=== PATIENT | male | born 1980 | race Caucasian/White ===

== ENCOUNTER 2024-07-24 12:56 | Emergency (ER) | payer BC, SELFPAY ==
--- NOTE | 2024-07-24 13:05 | EKG_ITS ---
[facility] Test Date: 2024-07-24 Pat Name: SUELLEN EL Department: Room: - Gender: Male Kinesiologist: : 1980 Requested By: Aime Cormier (DIANA) Order Number: [id number] Reading MD: Aime Cormier (HOUSE CARPENTER HELPER) Measurements Intervals [place] Rate: 62 P: 8 VT: 142 QRS: -1 QRSD: 94 T: 14 QT: 380 QTc: 388 Interpretive Statements SINUS RHYTHM MINIMAL VOLTAGE CRITERIA FOR LVH, CONSIDER NORMAL VARIANT [MEETS CRITERIA IN ONE OF: R(aVL), S(V1), R(V5), R(V5/V6)+S(V1)] No previous ECG available for comparison /[id number].pdf
--- NOTE | 2024-07-24 13:14 | XR_ITS ---
Examination: PA lateral chest 2 views TECHNIQUE: Upright PA lateral chest 2 views Exam date and time: July 20, 2024 1348 hours INDICATIONS: Chest pain beginning 2 days ago. FINDINGS: Normal heart size Lungs are clear. The osseous structures are intact IMPRESSION: No active disease
--- NOTE | 2024-07-24 13:15 | PD.EDRME ---
Rapid Medical Screening Exam RME Arrival date/time: 07/24/24 12:56 44-year-old male with no significant medical problems presents to the emergency department today with complaits of episode of hypertension and chest pressure and lightheadedness today Chief Complaint: Chest Pain
[2024-07-24 13:18] VITALS: BP 163/97; PULSE 70; RESP 18; TEMP 36.7; O2SAT 96; BMI 29.9
[2024-07-24 13:38] LABS: Basophils % (Auto) 1 % (0-2.5); Eosinophils # (Auto) 0.1 Thou/mm3 (0.0-0.5); Eosinophils % (Auto) 2 % (0-10); Hematocrit 45.8 % (41.0-53.0); Hemoglobin 16.7 g/dL (13.5-16.0); Immature Granulocytes % (Auto) 0 % (0-0); Immature Granulocytes Auto 0.01 Thou/mm3 (0.00-0.00); Lymphocytes # (Auto) 1.7 Thou/mm3 (1.0-4.8); Lymphocytes % (Auto) 29 % (10-50); Mean Corpuscular HGB Conc 36.5 g/dl (31.0-37.0); Mean Corpuscular Hemoglobin 32.9 pg (25.0-35.0); Mean Corpuscular Volume 90 fL (80-100); Monocytes # (Auto) 0.6 Thou/mm3 (0.0-0.8); Monocytes % (Auto) 10 % (0-12); Neutrophils # (Auto) 3.4 Thou/mm3 (1.8-7.7); Neutrophils % (Auto) 59 % (37-80); Nucleated Red Blood Cell % 0 /100 WBC (0); Platelet Count 251 Thou/mm3 (140-440); RDW Standard Deviation 41.4 fL (35.1-43.9); Red Blood Count 5.07 Miln/mm3 (4.50-5.90); White Blood Count 5.8 Thou/mm3 (3.8-10.6)
[2024-07-24 13:53] LABS: Partial Thromboplastin Time 29.1 Seconds (22.0-36.0); Prothrombin Time 10.9 Seconds (9.0-12.2)
[2024-07-24 13:58] LABS: B-Type Natriuretic Peptide < 20 pg/mL (0-100)
[2024-07-24 14:04] LABS: Alanine Aminotransferase 60 U/L (10-49); Albumin, Serum 4.6 gm/dL (3.5-5.0); Albumin/Globulin Ratio 1.7 (1.2-2.2); Alkaline Phosphatase 65 U/L (46-116); Anion Gap 4 (7-16); Aspartate Amino Transferase 36 U/L (0-34); BUN/Creatinine Ratio 15 Ratio (12-20); Bilirubin,Total 0.4 mg/dL (0.3-1.2); Blood Urea Nitrogen 19 mg/dL (9-23); Carbon Dioxide 27.6 mMol/L (20.0-31.0); Chloride 105 mMol/L (98-107); Creatinine (Component) 1.3 mg/dL (0.6-1.3); Estimated Creatinine Clearance 86.3 mL/min (>60); Globulin 2.7 gm/dL (2.3-3.5); Glucose 98 mg/dL (74-106); Osmolality,Calculated 276 (275-295); Potassium 4.4 mMol/L (3.4-5.1); Sodium 137 mMol/L (136-145); Total Protein 7.3 gm/dL (5.7-8.2); Troponin I < 0.020 ng/mL (0.0-0.045); eGFR > 60 See Note
[2024-07-24 17:45] LABS: Troponin I < 0.002 ng/mL (0.0-0.045)
--- NOTE | 2024-07-24 18:34 | PC.NURSE ---
PATIENT STATED HE HAD TO GO TO WORK AND LEFT ER. SISSY AT 1834.
== END 2024-07-24 18:35 | disposition left against medical advice (07) ==
PROVIDERS: Nurse Practitioner Primary Care; Emergency Provider Emergency Medicine; PCP Family Medicine
DX: R07.89 Other chest pain (principal); I10 Essential (primary) hypertension; R94.31 Abnormal electrocardiogram [ECG] [EKG]; Z53.29 Procedure and treatment not carried out because of patient's decision for other reasons
CPT/HCPCS: 36415; 71046; 80053; 83735; 83880; 84484; 85025; 85610; 85730; 93005; 99281

== ENCOUNTER 2025-02-24 21:57 | Emergency (ER) | payer BC, SELFPAY ==
[2025-02-24 21:59] VITALS: BMI 29.5
--- NOTE | 2025-02-24 22:24 | EKG_ITS ---
[facility] Test Date: 2025-02-24 Pat Name: SUELLEN EL Department: Room: - Gender: Male Medical Collections: : 1980 Requested By: ED Temporary Provider Order Number: [id number] Reading MD: ED Temporary Provider Measurements Intervals [place] Rate: 76 P: 24 MT: 150 QRS: -17 QRSD: 97 T: 3 QT: 370 QTc: 417 Interpretive Statements SINUS RHYTHM MODERATE VOLTAGE CRITERIA FOR LVH, CONSIDER NORMAL VARIANT [MEETS CRITERIA IN ONE OF: R(aVL), S(V1), R(V5), R(V5/V6)+S(V1)] NONSPECIFIC T-WAVE ABNORMALITY Compared to ECG 07/24/2024 13:17:25 T-wave abnormality now present /[id number].pdf
[2025-02-24 22:30] VITALS: BP 142/88; PULSE 76; RESP 18; TEMP 36.6; O2SAT 96
--- NOTE | 2025-02-24 23:32 | XR_ITS ---
Examination: AP chest single view Technique one AP portable chest single view Date and time: February 24, 2025, 11:45 PM Indications: Upper chest pain 4 months. Findings: Normal heart size Lungs are clear. The osseous structures are intact Impression: No active disease
[2025-02-25 00:17] LABS: Basophils # (Auto) 0.0 Thou/mm3 (0.0-0.2); Basophils % (Auto) 1 % (0-2.5); Eosinophils # (Auto) 0.1 Thou/mm3 (0.0-0.5); Eosinophils % (Auto) 2 % (0-10); Hematocrit 41.9 % (41.0-53.0); Hemoglobin 14.4 g/dL (13.5-16.0); Immature Granulocytes Auto 0.04 Thou/mm3 (0.00-0.00); Lymphocytes # (Auto) 2.8 Thou/mm3 (1.0-4.8); Lymphocytes % (Auto) 41 % (10-50); Mean Corpuscular HGB Conc 34.4 g/dl (31.0-37.0); Mean Corpuscular Hemoglobin 31.4 pg (25.0-35.0); Mean Corpuscular Volume 91 fL (80-100); Monocytes # (Auto) 0.8 Thou/mm3 (0.0-0.8); Monocytes % (Auto) 11 % (0-12); Neutrophils # (Auto) 2.9 Thou/mm3 (1.8-7.7); Neutrophils % (Auto) 44 % (37-80); Nucleated Red Blood Cell # 0.00 Thou/mm3 (0.00-0.00); Nucleated Red Blood Cell % 0 /100 WBC (0); Platelet Count 225 Thou/mm3 (140-440); RDW Standard Deviation 42.3 fL (35.1-43.9); Red Blood Count 4.59 Miln/mm3 (4.50-5.90); White Blood Count 6.7 Thou/mm3 (3.8-10.6)
[2025-02-25 00:35] LABS: B-Type Natriuretic Peptide < 20 pg/mL (0-100)
[2025-02-25 00:40] LABS: Alanine Aminotransferase 37 U/L (10-49); Albumin, Serum 4.1 gm/dL (3.5-5.0); Albumin/Globulin Ratio 1.8 (1.2-2.2); Alkaline Phosphatase 63 U/L (46-116); Anion Gap 10 (7-16); Aspartate Amino Transferase 22 U/L (0-34); BUN/Creatinine Ratio 8 Ratio (12-20); Bilirubin,Total 0.3 mg/dL (0.3-1.2); Blood Urea Nitrogen 11 mg/dL (9-23); Calcium 9.3 mg/dL (8.3-10.6); Calcium (Corrected) 9.3 mg/dL (8.5-10.1); Carbon Dioxide 27.5 mMol/L (20.0-31.0); Chloride 104 mMol/L (98-107); Creatinine (Component) 1.3 mg/dL (0.6-1.3); D-Dimer < 250 ng/mL (<600); Estimated Creatinine Clearance 80.7 mL/min (>60); Globulin 2.3 gm/dL (2.3-3.5); Glucose 104 mg/dL (74-106); Osmolality,Calculated 280 (275-295); Potassium 3.9 mMol/L (3.4-5.1); Sodium 141 mMol/L (136-145); Thyroid Stimulating Hormone 1.53 uIU/mL (0.55-4.78); Total Protein 6.4 gm/dL (5.7-8.2); Troponin I < 0.020 ng/mL (0.0-0.045); eGFR > 60 See Note
--- NOTE | 2025-02-25 01:04 | EDNOTE_ITS ---
ED Chest Pain RME/HPI General Chief Complaint: Chest Pain Stated Complaint: CHEST PAIN SOB Time Seen by Provider: 02/24/25 22:20 Arrival date/time: 02/24/25 21:57 This is a case of 44-year-old male with history of anxiety came in in the emergency room due to on and off chest pain with palpitation today patient s tates that with in 4 months patient had on and off chest pain and palpitation was seen by the PCP where he was diagnosed anxiety related chest pain and was given hydroxyzine patient took hydroxyzine prior to arrival in the emergency room which relieved the chest pain and palpitation no other symptoms no shortness of breath Limitations: no limitations Related Data Previous Rx's ?Medication ?Instructions ?Recorded baclofen 10 mg tablet 10 mg PO BID PRN pain #14 ta bs 06/29/19 ibuprofen 800 mg tablet 800 mg PO TID PRN pain #30 t abs 06/29/19 Allergies Allergy/AdvReac Type Severity Reaction Status Date / Time No Known Allergies Allergy Verified 02/24/25 22:02 Review of Systems Review of Systems Systems Reviewed: All systems reviewed, normal except as documented Constitutional Constitutional: Reports system reviewed and no additional complaints, except as documented and Reports as per HPI Cardiovascular Cardiovascular: Reports system reviewed and no additional complaints, except as documented and Reports as per HPI Respiratory Respiratory: Reports as per HPI Gastrointestinal Gastrointestinal: Reports system reviewed and no additional complaints, except as documented and Reports as per HPI Genitourinary Genitourinary: Reports system reviewed and no additional complaints, except as documented and Reports as per HPI Musculoskeletal Musculoskeletal: Reports system reviewed and no additional complaints, except as documented and Reports as per HPI Neurologic Neurologic: Reports system reviewed and no additional complaints, except as documented and Reports as per HPI Past Medical History Social History SMOKING STATUS: Never smoker ED Exam General Limitations: Present no limitations General appearance: Present alert, in no apparent distress and other (Patient is awake alert oriented not in distress nontoxic looking well-hydrated well- nourished) Head Head exam: Present atraumatic, normocephalic and normal inspection Eye Eye exam: Present normal appearance, PERRL and EOMI ENT ENT exam: Present normal exam, normal oropharynx and mucous membranes moist Neck Neck exam: Present normal inspection, full ROM and trachea midline; Absent tenderness, meningismus, lymphadenopathy or thyromegaly Chest Chest inspection: Present normal inspection and symmetric chest wall rise; Absent tenderness Respiratory Respiratory exam: Present normal lung sounds bilaterally; Absent respiratory distress, wheezes, stridor, accessory muscle use or prolonged expiratory phase Cardiovascular Cardiovascular exam: Present regular rate, normal rhythm and normal heart sounds; Absent bradycardia, tachycardia, irregular rhythm, systolic murmur or diastolic murmur Abdominal Exam Abdominal exam: Present soft and normal bowel sounds; Absent distention, tenderness, guarding, rebound, rigidity, diminished bowel sounds, hyperactive bowel sounds, hypoactive bowel sounds or organomegaly Extremities Exam Extremities exam: Present normal inspection and full ROM Back Exam Back exam: Present normal inspection and full ROM Neurological Exam Neurological exam: Present alert, oriented X3, CN II-XII intact, normal gait and reflexes normal; Absent motor sensory deficit Psychiatric Psychiatric exam: Present normal affect and normal mood Skin Skin exam: Present warm, dry, intact and normal color Course Quality Measures none Orders Category Date Time Status EKG (ED ONLY) *Do not use* NOW Care 02/24/25 22:24 Completed EKG (ED Only) Stat Exams 02/24/25 22:24 Draft XR chest 1V portable Stat Exams 02/24/25 23:32 Completed BNP [B-Type Natriuretic Peptide] Stat Lab 02/24/25 23:47 Completed CBC Stat Lab 02/24/25 23:47 Completed CMP [Comprehensive Metabolic Panel] Stat Lab 02/24/25 23:47 Completed D-Dimer Stat Lab 02/24/25 23:47 Completed TSH [Thyroid Stimulating Hormone] Stat Lab 02/24/25 23:47 Completed Troponin I Stat Lab 02/24/25 23:47 Completed Aspirin Med 02/25/25 01:02 Discontinued 325 mg PO X1 ONE Vital Signs Vital signs: Vital Signs Temperature 97.8 F 02/24/25 22:30 Pulse Rate 76 02/24/25 22:30 Respiratory Rate 18 02/24/25 22:30 Blood Pressure 142/88 H 02/24/25 22:30 Pulse Oximetry (%) 96 02/24/25 22:30 Oxygen Delivery Method Room Air 02/24/25 22:30 Oxygen saturation is 96% in room air Chest Pain MDM Narrative MDM Narrative:: This is a case of 44-year-old male with history of anxiety came in in the emergency room due to on and off chest pain with palpitation today patient states that with in 4 months patient had on and off chest pain and palpitation was seen by the PCP where he was diagnosed anxiety related chest pain and was given hydroxyzine patient took hydroxyzine prior to arrival in the emergency room which relieved the chest pain and palpitation no other symptoms no shortness of breath physical examination patient is awake alert oriented not in distress nontoxic looking well-hydrated well-nourished lungs sound is clear no crackles no rales no retraction no stridor heart normal rate regular rhythm no murmur vital signs stable BP stable nontachycardic nontachypneic afebrile and nonhypoxic blood test showed no leukocytosis no anemia kidney liver function is normal no electrolyte imbalance troponin is negative BNP is normal D-dimer is normal patient TSH is also normal x-ray showed normal and unremarkable EKG is sinus rhythm 76 based on my physical examination and history patient chest pain is possible due to anxiety related chest pain patient still advised to follow-up with PCP to be referred to janitor helper for further evaluation and treatment for possible echocardiogram stress test and Holter monitor recurrence persistent worsening symptoms or any emergent concern return precaution in the emergency room was advised Patient data External records reviewed:: [facility] previous records Clinical information provided by:: patient Social determinants that could affect healthcare access:: none Patient has the following chronic illnesses:: None How is presenting disease/condition affected by chronic disease/condition?: no chronic disease Evaluation data The following diagnostics were reviewed and interpreted by me:: lab results, radiology exam(s) and EKG tracing(s) Lab and/or radiology exams considered but not ordered:: Reviewed Interpretation Summary: Reviewed Medications / Prescriptions Medications or Prescriptions considered but not ordered:: Given Medication administrations:: Medication Administration History Discontinued Medications Aspirin (Aspirin 325 Mg Tablet) 325 mg PO X1 ONE Stop: 02/25/25 01:03 Given Consultations Consultation(s) initiated? (list below): No Diagnosis Chest Pain Differential Diagnosis: atypical chest pain, costochondritis and chest pain Most likely diagnosis given after review of the tests above:: Chest pain of unknown etiology palpitation Admission Indicated Admission indicated?: not indicated Explain why admission is indicated or not indicated:: Not indicated Admission Request Was there a request for admission?: No Admission Attestation Admission request attestation: Not indicated Disposition Plan Disposition Plan: Discharge Discharge Attestation Discharge Attestation: The patient and all family members were given an opportunity to ask questions and understood the discharge instructions. Discharge instructions specifically effects, indications for sooner follow up or return to the emergency department, and the expected course of current diagnosis. Patient condition: Stable Discharge Plan Plan Patient Disposition: HOME (Self Care) Patient condition on transfer: Stable Prescriptions/Referrals Prescriptions/Med Rec: No Action ibuprofen 800 mg tablet 800 mg PO TID PRN (Reason: pain) Qty: 30 0RF baclofen 10 mg tablet 10 mg PO BID PRN (Reason: pain) Qty: 14 0RF Referrals: Mahamed Rangel MD [Primary Care Provider, Family Practice] - In 1 week Problem List Clinical Impression: Chest pain of unknown etiology, Palpitation Patient/Caregiver Discharge Instructions Education Materials: ED Chest Pain, Uncertain Cause, ED Palpitations Additional Instructions: Follow-up with your primary care physician in 2 days for reevaluation and to be referred to janitor helper for further evaluation and treatment of chest pain and palpitation recurrence persistent worsening symptoms or any emergent concern c all 911 or go to the nearest emergency room keep hydrated Print Language: [place] Stand Alone Forms: Laure Award Info., Patient Portal Info Letter PA/SHARA Supervising Physician PA/SHARA Supervising Physician: Dr. Zelalem Alvarez
== END 2025-02-25 01:10 | disposition home or self-care (01) ==
PROVIDERS: Nurse Practitioner Family; Emergency Provider Emergency Medicine; PCP Family Medicine
DX: R07.9 Chest pain, unspecified (principal); R00.2 Palpitations; F41.9 Anxiety disorder, unspecified
CPT/HCPCS: 36415; 71045; 80053; 83880; 84443; 84484; 85025; 85379; 93005; 99283; A9270

== ENCOUNTER → 2025-02-26 | Outpatient (CLI) | payer BC, SELFPAY ==
[2025-02-26 15:16] LABS: Troponin I < 0.020 ng/mL (0.0-0.045)
== END | disposition home or self-care (01) ==
LOC: COPL 14:11
PROVIDERS: PCP Family Medicine; Referring Provider Nurse Practitioner Family; Visit Provider Nurse Practitioner Family
DX: R07.9 Chest pain, unspecified (principal)
CPT/HCPCS: 36415; 84484